=== PATIENT | female | born 1980 | race Caucasian/White ===

== ENCOUNTER 2016-07-04 21:15 | Emergency (ER) | payer MEDICARE, MEDICAID ==
[~2016-07-04] VITALS: Ht 165.1 cm; Wt 102.3 kg
[~2016-07-04 21:15] MED LIST: ALPR1TAB2 PO; DEXT5TAB23 PO; HYDR30CR98 RC; METF500T4 PO; PRE20 PO; TOPI200T17 PO
[2016-07-04 21:17] VITALS: BP 168/98; PULSE 70; RESP 18; O2SAT 100
--- NOTE | 2016-07-04 21:40 | ED.REPORT ---
HPI-Chest Pain Under 40 Date of Service Jul 04, 2016 ED Provider: Bebo Sanchez MD Pt is a 35 y.o. female with a hx of Celiac disease who presents to the ED c/o intermittent mid-sternal chest pain described as cramping onset yesterday. Pt states that she had an episode last night before she fell asleep and several episodes today. Her most recent episode began when she was making dinner and discomfort is still present upon examination. She denies cough and vomiting. She also denies it being exacerbated by position. She reports similar pain several months ago and having 2 abnormal ECG's in her PCP's office but when repeated later they were normal. Nursing Notes Stated Complaint: CHEST PAIN Chief Complaint: Chest Pain Nursing Notes Reviewed: Yes Allergies: Coded Allergies: escitalopram (Verified Allergy, Severe, hallucinate, 07/04/16) benzonatate (Verified Allergy, Intermediate, vomiting, 07/04/16) Scheduled Dextroamphetamine/Amphetamine (Adderall) 5 Mg Tablet 5 MG PO BID Hydrocortisone (Hydrocortisone) 2.5 % Cream.appl 30 GM RC TID Metformin (Metformin) 500 Mg Tablet 500 MG PO BID Omeprazole (Omeprazole) 20 Mg Tablet.dr 20 MG PO BID Prednisone (PredniSONE) 20 Mg Tablet 40 MG PO DAILY Topiramate (Topamax) 200 Mg Tablet 200 MG PO BID Scheduled PRN Alprazolam (Xanax) 1 Mg Tablet 1 MG PO BID PRN PRN For Anxiety General Time Seen by MD: 21:40 Chief Complaint Chest pain Hx Obtained From: Patient Arrived By: Walk-in Sudden in Onset?: Yes Onset Occurred: Yesterday Symptom Duration: Intermittent Location: : Substernal Quality: Cramping, Painful Severity: Current: No pain currently Past Medical History Past Medical History Celiac disease Bipolar disorder Past Surgical History Complicated hysterectomy - perforated bladder Pati Appy Tubal ligation Knee repair Smoking History Never Smoker Ambulatory Status Independent Review of Systems Respiratory: Denies: Non-productive cough Cardiovascular: Reports: Chest pain GI: Denies: Vomiting Complete sys rev & neg: except as marked. Physical Exam Initial Vital Signs Vital Signs (First) Date Time Temp Pulse Resp B/P Pulse Ox O2 Delivery O2 Flow Rate FiO2 07/04/16 21:17 36.1 70 18 168/98 100 Room Air Initial VS: Reviewed Head / Eyes: Atraumatic, Normocephalic Extremities: Vascular intact, Neuro intact Skin: Warm, Dry, No cyanosis Neurologic: Alert, Oriented, Nonfocal Psychiatric: Mood/affect normal, Behavior normal, Normal thought content General/Constitutional: Awake, Alert, No acute distress, Well appearing, Well developed, Well hydrated, Well nourished, Not toxic appearing Appearance / Presentation: Positive: Obese Respiratory / Chest: Atraumatic, Breath sounds NL, Breath sounds = bilat, No respiratory distress, No rales, No rhonchi, No wheezing, No retractions, No stridor, No chest tenderness Cardiovascular: Heart rate NL, Regular rhythm, Heart sounds NL, No gallop, No murmurs, No rubs, Peripheral circulation NL Abdomen: Atraumatic, Soft, No guarding, No rebound, No distention Tenderness/Guarding/Rebound: Positive: Tender epigastric Interpretation & Diagnostics Lab Results Interpretation Result Diagram: 07/04/165 07/04/16 2215 Test 07/04/16 22:15 White Blood Count 15.9th/mm3 (3.8-10.1) Red Blood Count 4.49mil/mm3 (3.90-5.20) Hemoglobin 12.8g/dL (12.0-15.6) Hematocrit 38.2% (35.0-46.0) Mean Corpuscular Volume 85.1fL (81-100) Mean Corpuscular Hemoglobin 28.5pg (27.0-35.0) Mean Corpuscular Hemoglobin Concent 33.5% (32.0-37.0) Red Cell Distribution Width 13.0% (12.3-15.4) Platelet Count 364bil/L (150-400) Neutrophils (%) (Auto) 55.8% (40-74) Lymphocytes (%) (Auto) 35.1% (14-46) Monocytes (%) (Auto) 6.9% (4-12) Eosinophils (%) (Auto) 1.6% (0-5) Basophils (%) (Auto) 0.3% (0-3) Sodium Level 140mEq/L (134-144) Potassium Level 4.0mEq/L (3.5-5.2) Chloride Level 104mEq/L (97-108) Carbon Dioxide Level 21mmol/L (18-29) Blood Urea Nitrogen 13mg/dL (6-20) Creatinine 0.37mg/dL (0.57-1.00) Estimat Glomerular Filtration Rate 286mL/min (>59) Glucose Level 98mg/dL (60-99) Calcium Level 9.1mg/dL (8.5-10.1) Magnesium Level 1.8mg/dL (1.6-2.6) Total Bilirubin 0.4mg/dL (0.0-1.2) Aspartate Amino Transf (AST/SGOT) 14U/L (0-50) Alanine Aminotransferase (ALT/SGPT) 12U/L (0-32) Alkaline Phosphatase 59U/L (25-150) Troponin T 0.010ug/L (0.0-0.011) Pro-B-Type Natriuretic Peptide 76.93pg/mL (0-130) Total Protein 7.2g/dL (6.4-8.4) Albumin 4.2g/dL (3.4-5.0) ECG Interpretation Time: 21:46 Interpreted by: ED physician Normal ECG Interpretation: Normal ECG w/ rate of... (65), Normal rate, Normal sinus rhythm X-Ray Chest Interpretation Chest Xray Interpretation: IMPRESSION: No acute cardiopulmonary disease. Interpretation / Wet Read by: Wet read ED physician Re-Eval/Medical Decision Med Decision/Clinical Course 35-year-old with no cardiac risk factors presents with an esophageal area pain. EKG is negative. Initial troponin done by protocol was negative. No indication for repeat. This pain is esophageal. Home with omeprazole twice a day and follow-up with PCP. Source of Hx: Old records Re-Evaluation/Progress : Time of Eval: 23:52 Patient Status: Condition improved, Pain improved Re-Evaluation/Progress Note: Pt rechecked. Pt states pain is improved. Discussed plan for discharge, pt understands and agrees with plan. Counseled Regarding: Diagnosis, Lab results, Need for follow-up, When/why to return to ED Discharge & Departure Shift Change Sign-Out Response to Therapy: Improved Primary Impression: Non-cardiac chest pain Additional Impression: Esophageal spasm Disposition: Home Discharge Condition All VS Reviewed: Yes Condition: Stable Additional Instructions: We have no indication of cardiac disease or other dangerous cause for your discomfort. I suspect esophageal spasm most likely. Begin omeprazole twice daily. Follow-up with your doctor in the office. Return if any immediate issues. Referrals: Marisela Bonilla MD (PCP) Manohar Attestation Portions of this note were transcribed by Elena Maradiaga. I, Dr. Sanchez personally performed the history, physical exam and medical decision-making; I reviewed and confirmed the accuracy of the information in the transcribed note. Signed by: Manohar Sam, 07/05/16 and 0013. copies to: Marisela Bonilla MD, Christopher W MD Jul 04, 2016 21:40 ELENA MARADIAGA Jul 04, 2016 21:53
[2016-07-04] MEDS ORDERED: Pantoprazole 4 mg/mL 10 mL Inj IVPUSH ONE (21:50)
--- NOTE | 2016-07-04 22:02 | DRSVH ---
PROCEDURE: X-RAY CHEST ONE VIEW, PORTABLE ([id number]) INDICATIONS: CHEST PAIN TECHNIQUE: One view of the chest was acquired. COMPARISON: None. FINDINGS: Surgical changes and devices: None. Lungs and pleura: No pleural effusions or pneumothorax. Lungs are clear. Mediastinum: Mediastinal contours appear normal. Heart size is normal. Bones and chest wall: No suspicious bony lesions. Overlying soft tissues appear unremarkable. IMPRESSION: 1. No acute cardiopulmonary disease. Dictated by: Yuan Perez M.D. on 07/04/2016 at 22:00 Approved by: Yuan Perez M.D. on 07/04/2016 at 22:00
[2016-07-04 22:31] LABS: BASOPHILS % (AUTO) 0.3 % (0-3); EOSINOPHILS % (AUTO) 1.6 % (0-5); MONOCYTES % (AUTO) 6.9 % (4-12); Mean Corpuscular Hemoglobin 28.5 pg (27.0-35.0); Mean Corpuscular Volume 85.1 fL (81-100); NEUTROPHILS % (AUTO) 55.8 % (40-74); Platelet Count 364 bil/L (150-400)
[2016-07-04 22:53] LABS: TROPONIN T 0.01 ug/L (0.0-0.011)
[2016-07-04 23:04] LABS: Magnesium 1.8 mg/dL (1.6-2.6)
[2016-07-04] MEDS ORDERED: OMEP20TA86 PO (23:56)
[2016-07-05 00:46] VITALS: BP 118/68; RESP 16
== END 2016-07-05 00:48 | disposition home or self-care (01) ==
LOC: SED 21:15
DX: R07.89 Other chest pain (principal); K22.4 Dyskinesia of esophagus; F31.9 Bipolar disorder, unspecified; Z79.84 Long term (current) use of oral hypoglycemic drugs; Z88.8 Allergy status to other drugs, medicaments and biological substances
CPT/HCPCS: 36415; 71010; 80053; 83735; 83880; 84484; 85025; 93005; 96372; 96374; 99285; J2270

== ENCOUNTER 2016-11-05 21:12 | Emergency (ER) | payer MEDICARE, MEDICAID ==
[~2016-11-05] VITALS: Ht 167.6 cm; Wt 106.8 kg
[~2016-11-05 21:12] MED LIST changes: +OMEP20TA86 PO
[2016-11-05 21:24] VITALS: BP 154/93; PULSE 81; RESP 18; O2SAT 99
--- NOTE | 2016-11-05 22:30 | ED.REPORT ---
HPI-Trauma Minor / Fall Date of Service Nov 05, 2016 ED Provider: Bairon Duke MD Pt is a 36 y.o. female with a hx of celiac and bipolar disorder who presents to the ED c/o a head injury sustained 3 days ago. Pt state that she was playing baseball and was hit in the left side of her head by a ball. She reports associated fatigue, intermittent lightheadedness, and left-sided headache, described as pressure and throbbing rated at a 7. She also report tinnitus at onset that resolved 2 days ago. She denies LOC, vision changes, nausea, and vomiting. She denies a family hx of aneurysm and blood disorder. Nursing Notes Stated Complaint: HEADACHE, SLEEPINESS, HIT BY BASEBALL Chief Complaint: Head, Face, Neck Trauma Nursing Notes Reviewed: Yes Allergies: Coded Allergies: escitalopram (Verified Allergy, Severe, hallucinate, 11/05/16) benzonatate (Verified Allergy, Intermediate, vomiting, 11/05/16) Scheduled Dextroamphetamine/Amphetamine (Adderall) 5 Mg Tablet 5 MG PO BID Hydrocortisone (Hydrocortisone) 2.5 % Cream.appl 30 GM RC TID Metformin (Metformin) 500 Mg Tablet 500 MG PO BID Omeprazole (Omeprazole) 20 Mg Tablet.dr 20 MG PO BID Prednisone (PredniSONE) 20 Mg Tablet 40 MG PO DAILY Topiramate (Topamax) 200 Mg Tablet 200 MG PO BID Scheduled PRN Alprazolam (Xanax) 1 Mg Tablet 1 MG PO BID PRN PRN For Anxiety General Time Seen by MD: 22:29 Chief Complaint Head injury Hx Obtained From: Patient Arrived By: Walk-in Onset Occurred: 3 days ago Symptom Duration: Since onset Caused by: Accidental Context: Occurred at: Sports event, Sports injury Location: Head Quality: Painful, Pressure Severity: Current: Pain level 7 out of 10 Recent Healthcare: No recent doctor visit, No recent hospitalization Similar Sx Previous: No Past Medical History Past Medical History Celiac disease Bipolar disorder Past Surgical History Complicated hysterectomy - perforated bladder Pati Appy Tubal ligation Knee repair Smoking History Never Smoker Ambulatory Status Independent Review of Systems Constitutional: Reports: Fatigue Neurologic: Reports: Headache, Lightheaded, Denies: Change LOC, Vision change Complete sys rev & neg: except as marked. GI: Denies: Nausea, Vomiting Physical Exam Initial Vital Signs Vital Signs (First) Date Time Temp Pulse Resp B/P Pulse Ox O2 Delivery O2 Flow Rate FiO2 11/05/16 21:24 37.1 81 18 154/93 99 Room Air Initial VS: Reviewed Abdomen / GI: No distention Extremities: Vascular intact, Neuro intact Skin: Warm, Dry, No cyanosis Neurologic: Alert, Oriented, Nonfocal Psychiatric: Mood/affect normal, Behavior normal, Normal thought content General/Constitutional: Awake, Alert, No acute distress, Well appearing, Well developed, Well hydrated, Well nourished, Not toxic appearing Appearance / Presentation: Positive: Obese Neck: Atraumatic Head / Eyes: Atraumatic, Normocephalic, PERRL ENT: Atraumatic, Airway patent, Mucous membranes moist, Tympanic membs NL, Ext aud canal NL Trauma - General: Negative: Abrasion, Contusion, Ecchymosis Respiratory / Chest: Atraumatic, Breath sounds NL, Breath sounds = bilat, No respiratory distress Cardiovascular: Heart rate NL, Regular rhythm, Heart sounds NL, Cap refill not delayed, Peripheral circulation NL Interpretation & Diagnostics CT Head Interpretation CONCLUSION: No evidence of a calvarial fracture or intracranial hemorrhage. Scattered paranasal sinus mucosal thickening. Radiologist: Vj Elaine MD Re-Eval/Medical Decision Med Decision/Clinical Course 36F w/ headache 2 days after blunt head trauma. Sxs seem most c/w concussion/postconcussive syndrome. No red flag sxs. CT neg for acute abnl. Plan dc w/ careful return precautions, PCP f/u. Source of Hx: Old records Re-Evaluation/Progress : Time of Eval: 00:27 Re-Evaluation/Progress Note: Discussed imaging results and plan for discharge, pt understands and agrees with plan. Counseled Regarding: Diagnosis, Lab results, Need for follow-up, When/why to return to ED Discharge & Departure Impression: Primary Impression: Head injury Encounter type: initial encounter Qualified Code: S09.90XA - Unspecified injury of head, initial encounter Additional Impression: Concussion Encounter type: initial encounter Loss of consciousness presence/duration: without LOC Qualified Code: S06.0X0A - Concussion without loss of consciousness, initial encounter Disposition: Home Discharge Condition All VS Reviewed: Yes Condition: Improved Patient Instructions: Concussion (ED), Post Concussion Syndrome (ED) Additional Instructions: Thank you for entrusting us with your care today. You imaging and evaluation was reassuring and I do not believe there is any serious mechanism for your current symptoms. Your symptoms are most likely due to a concussion. Follow the instruction given to you on the concussion and post concussive disorder hand outs. Use Tylenol or ibuprofen as directed for pain. I recommend you follow up with your primary care provider, call Sunday to schedule an appointment. Return if you develop a worsening headache, vision changes, intractable vomiting , or any new or worsening symptoms. Referrals: Mark Tolentino DO (PCP) Khalifibsamuel Attestation Portions of this note were transcribed by Elena Maradiaga. I, Dr. Duke personally performed the history, physical exam and medical decision-making; I reviewed and confirmed the accuracy of the information in the transcribed note. Signed by: Manohar Sam, 11/06/2016 and 0028. copies to: Mark Tolentino William B MD Nov 05, 2016 22:29 ELENA MARADIAGA Nov 05, 2016 23:12
[2016-11-06 00:54] VITALS: BP 140/90; PULSE 79; RESP 26; O2SAT 97
--- NOTE | 2016-11-06 09:07 | DRSVH ---
PROCEDURE: CT BRAIN WITHOUT CONTRAST ([id number]) INDICATIONS: evaluate for acute intracranial abnormality, bleed TECHNIQUE: Noncontrast 4.5 mm thick angled axial sections acquired from the foramen magnum to the vertex, with c oronal reformats. COMPARISON: None. FINDINGS: Image quality: Excellent. CSF spaces: Basal cisterns are patent. No extra-axial fluid collections. Ventricles are normal in size and shape. Brain: No midline shift. No intracranial masses or hemorrhage. Waterman-white matter interface is norm al. Skull and face: Calvarium and visualized facial bones are intact, without suspicious lesions. Sinuses: Scattered opacities noted in the ethmoid air cells; please correlate with clinical data. The mastoids are clear. IMPRESSION: No acute intracranial disease process. Dictated by: Cristela Recio MD, PhD on 11/06/2016 at 9:04 Approved by: Cristela Recio MD, PhD on 11/06/2016 at 9:06
== END 2016-11-06 00:55 | disposition home or self-care (01) ==
LOC: SED 21:12
DX: S09.8XXA Other specified injuries of head, initial encounter (principal); S06.0X0A Concussion without loss of consciousness, initial encounter; W21.03XA Struck by baseball, initial encounter; Y93.64 Activity, baseball; Y92.89 Other specified places as the place of occurrence of the external cause; Y99.8 Other external cause status; F31.9 Bipolar disorder, unspecified; K90.0 Celiac disease; Z88.8 Allergy status to other drugs, medicaments and biological substances